=== PATIENT | male | born 1970 | race Hispanic/Latino ===

== ENCOUNTER → 2021-02-28 | Day surgery (SDC) | payer BC ==
[~2021-02-28] MED LIST: CRESTOR10 MG PO; FENOFIBRATE134 MG PO; GLYBURIDE2.5 MG PO; IBUPROFEN200 MG PO; JANUVIA100 MG PO; KETOROLAC TROME10 MG PO; LISINOPRIL2.5 MG PO; METFORMIN HCL500 MG PO; SOLIQUA 100 UNIT3 ML SC; Z.0.ALEVE220 M1 PO
[2021-02-28 11:25] VITALS: BP 144/87
== END | disposition home or self-care (01) ==
LOC: OR 06:37
PROVIDERS: ATTEND Internal Medicine Gastroenterology
DX: Z12.11 Encounter for screening for malignant neoplasm of colon (principal); K57.30 Diverticulosis of large intestine without perforation or abscess without bleeding; K64.8 Other hemorrhoids; Z71.3 Dietary counseling and surveillance; E11.9 Type 2 diabetes mellitus without complications; I10 Essential (primary) hypertension; E66.3 Overweight; Z68.27 Body mass index [BMI] 27.0-27.9, adult
CPT/HCPCS: 36415; 45378; 82948; 93005; U0002